=== PATIENT | male | born 2005 | race Caucasian/White ===

== ENCOUNTER 2023-12-01 13:59 | Emergency (ER) | payer OTHER, SELFPAY ==
[2023-12-01 14:07] VITALS: BP 142/65; PULSE 63; RESP 16; TEMP 36.8; O2SAT 98
--- NOTE | 2023-12-01 14:32 | ED.GENADULT ---
HPI - General Adult General Chief complaint: Wound/Laceration Stated complaint: left foot laceration Time Seen by Provider: 12/01/23 14:24 History of Present Illness HPI narrative: 18-year-old male present to the emergency department for evaluation for left-sided foot wound. Patient stepped on a staple at home. Patient states it was a carpet stable and did not stay in his foot. Patient states he was concerned about possibly of underlying infection so he presented to the emergency department. Patient states he also does need a work note for today. Patient reports that his tetanus is up-to-date. Related Data Allergies Allergy/AdvReac Type Severity Reaction Status Date / Time No Known Allergies Allergy Verified 12/01/23 14:09 Review of Systems Review of Systems: All systems reviewed & are unremarkable except as noted in HPI and below Exam Narrative: APPEARANCE: Well appearing, no pain, no distress, well-nourished. HEAD: normocephalic, atraumatic. EYES: PERRLA/EOMI, conjunctivae clear. NOSE: Normal no drainage EARS:TMS clear with good light reflex. THROAT: Pharynx clear, no exudate. NECK: Supple. No adenopathy, no masses. RESPIRATORY: Airway patent, respirations nonlabored. Clear to auscultation bilaterally, no rales, rhonchi, wheezing. CARDIOVASCULAR: Regular rate and rhythm without murmurs rubs or gallops. ABDOMINAL: Soft, nontender, nondistended, normal bowel sounds MUSCULOSKELETAL: Moves all extremities. Strength/ROM intact, No edema, No calf tenderness. NEURO: Alert. Cranial nerves II through XII intact. Good gait. Good coordination SKIN: No puncture wound noted on the dorsum of the left foot. No significant erythema. Course Course Emergency Course: Patient was started on antibiotics for reported puncture wound. Patient's tetanus was reported to be up-to-date Vital Signs Vital signs: Vital Signs Temperature 98.2 F 12/01/23 14:07 Pulse Rate 63 12/01/23 14:07 Respiratory Rate 16 12/01/23 14:07 Blood Pressure 142/65 H 12/01/23 14:07 Pulse Oximetry 98 12/01/23 14:07 Oxygen Delivery Room Air 12/01/23 14:07 Temperature 98.2 F 12/01/23 14:07 Pulse Rate 63 12/01/23 14:07 Respiratory Rate 16 12/01/23 14:07 Blood Pressure 142/65 H 12/01/23 14:07 Pulse Oximetry 98 12/01/23 14:07 Oxygen Delivery Room Air 12/01/23 14:07 Medical Decision Making MDM Narrative Medical decision making narrative: 18-year-old male presenting to the ED for evaluation for a puncture wound to the bottom of his left foot. Patient has had no significant injury requiring repair. Patient was started on antibiotics. Patient's tetanus was up-to-date. Patient was encouraged close follow-up with primary care physician. Vital Signs Vital Signs: Vital Signs Temperature 98.2 F 12/01/23 14:07 Pulse Rate 63 12/01/23 14:07 Respiratory Rate 16 12/01/23 14:07 Blood Pressure 142/65 H 12/01/23 14:07 Pulse Oximetry 98 12/01/23 14:07 Oxygen Delivery Room Air 12/01/23 14:07 Temperature 98.2 F 12/01/23 14:07 Pulse Rate 63 12/01/23 14:07 Respiratory Rate 16 12/01/23 14:07 Blood Pressure 142/65 H 12/01/23 14:07 Pulse Oximetry 98 12/01/23 14:07 Oxygen Delivery Room Air 12/01/23 14:07 Discharge Plan Discharge Clinical Impression: Puncture wound Patient Disposition: Home, Self-Care Condition: Stable Instructions: Antibiotic Form, Puncture Wound (ED) Additional Instructions: Antibiotic as directed until completed. Have close follow-up with your primary care physician. Prescriptions: New cephalexin 500 mg capsule 500 mg PO Q12H 7 Days Qty: 14 0RF Follow-up/Referrals: PHYSICIAN,AIR TECHNICIAN [Non-Staff] - Stand Alone Forms: Work/School Release IP
== END 2023-12-01 14:54 | disposition home or self-care (01) ==
LOC: ANHED 14:42
PROVIDERS: Emergency Provider Emergency Medicine
DX: S91.332A Puncture wound without foreign body, left foot, initial encounter (principal); W26.8XXA Contact with other sharp object(s), not elsewhere classified, initial encounter
CPT/HCPCS: 99283

== ENCOUNTER 2024-09-02 18:27 | Emergency (ER) | payer OTHER, SELFPAY ==
--- OUTSIDE RECORDS SUMMARY | 2024-09-02 18:39 | XMS_ITS | Clinical Summary ---
Author Organization [facility] [place] [address] [facility] lto Address [address] [place] [address] Care Team Providers Care Library Circulation Clerk Name Role Phone Griffin Colorado MD Primary Care Provider [phone] Allergies No known active allergies Medications albuterol HFA (PROVENTIL HFA,VENTOLIN HFA,PROAIR HFA) 90 mcg/actuation inhaler Inhale 2 puffs every 6 (six) hours as needed for wheezing 1 each 4 04/21/19 25 026 Active ondansetron ODT (ZOFRAN-ODT) 4 mg disintegrating tablet Take 1 tablet (4 mg total) by mouth every 8 (eight) hours as needed for nausea or vomiting 20 tablet 06/16/19 25 Active Additional Information Patient not taking.Reported on 08/30/2024 methylPREDNISolone (MEDROL DOSEPACK) 4 mg Dosepack Take as directed on package 1 packet 08/31/19 25 025 Active Active Problems Problem Noted Date Diagnosed Date Acute right eye pain 05/25/2024 Right corneal abrasion 05/25/2024 Assessment & Plan (05/25/2024 1:22 PM CANVASSING MANAGER): Erythromycin ointment given. Discussed red flags and when to go to ER. Will continue to monitor. 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 Encounter for medical examination to establish c are 04/21/2024 Assessment & Plan (04/21/2024 9:09 AM CANVASSING MANAGER): Focus of exam is to establish care. Reivewed past medical history. Congratulate on cigarette cessation. Remains active. Reivewed usn/skin cancer screening. Montior for change in stools / abdominal pain with family hx of UC. BMI 34.0-34.9,adult 04/21/2024 Assessment & Plan (04/21/2024 9:09 AM CANVASSING MANAGER): Healthy food chcoies and encourage 150min/week aerobic exercise. Class 1 obesity due to exces s calories without serious comorbidity with body mass index (BMI) of 34.0 to 34.9 in adult 04/21/2024 Assessment & Plan (05/25/2024 1:21 PM CANVASSING MANAGER): Encouraged heart healthy diet and lifestyle. Advised 150 min/week of aerobic exercise. Hay fever 07/07/2011 Encounters Date Type Department Care Team Description 08/30/2024 4:53 PM CDT - 08/30/2024 6:45 PM CDT Emergency [facility] Emergency Department [address] [place] [address] Acute cough (Primary Dx); Viral illness Discharge Disposition: Discharge to home or self care 08/30/2024 3:30 PM CDT Office Visit [facility] [place] [address] [place] [address] Ashley Little NP Dizziness (Primary Dx) 06/15/2024 3:00 PM CDT Office Visit [facility] Medical [facility] [place] [address] [place] [phone] Palmira Feliz NP Sore throat (Primary Dx); Upper respiratory tract infection, unspecified type; Nausea and vomiting, unspecified vomiting type; Diarrhea, unspecified type from Last 3 Months Immunizations Immunization Administration Dates Next Due DTaP / Hep B / IPV 05/06/2004,03/04/2004, 004 DTaP / IPV 11/08/2008 DTaP, Unspecified 01/26/2005 HPV, Quadrivalent 08/26/2017,03/03/2016 Hep A, Unspecified 11/02/2006,2005 Hep B, Unspecified 2003 HiB 01/26/2005,05/06/2004,03/04/2004 ,01/03/2004 Influenza LAIV (Nasal) 01/26/2012 Influenza, Unspecified 01/09/2021 MMR 11/08/2008,04/20/2005 Meningococcal B, OMV (Bexsero) 01/09/2021 Meningococcal MCV4P (Menactra) 01/09/2021,2014 Pneumococcal Conjugate 7-Valent 03/04/2004,01/02 Pneumococcal, Unspecified 2004,05/06/2004 Tdap 07/16/2022,09/03/2014 Varicella 11/08/2008,2004 Medical History Medical History Date Comments Personal history of other di seases of the digestive system History of esophageal reflux - (Added by TW Conv) Personal history of other di seases of the respiratory system Personal history of asthma - (Added by TW Conv) Family History Medical History Relation Name Comments Ulcerative colitis Father Ulcerativ e Colitis - (Added by TW Conv) Asthma Mother Asthma - (Added by TW Conv) Relation Name Status Comments Father Mother Social History Tobacco Use Types Packs/Day Years Used Date Smoking Tobacco: Former Cigarettes Vaping Smokeless Tobacco: Former Tobacco Cessation:Counseling Given: Not Answered PHQ-2 Answer Date Recorded PHQ-2 Total Score (If total score is 3 or more points, staff should administer the PHQ-9) 0 05/25/2024 Personal Safety Answer Date Recorded Have you ever been in or are you currently in a harmful physical or emotional relationship or is someone making you feel afraid or unsafe? Denies 08/30/2024 Sex and Gender Information Value Date Recorded Sex Assigned at Not on file Legal Sex Male 11:29 PM CANVASSING MANAGER Gender Identity Not on file Sexual Orientation Not on file Obstetrics History Last Filed Vital Signs Vital Sign Reading Time Taken Comments Blood Pressure 119/57 08/30/2024 4:51 PM CDT Pulse 95 08/30/2024 4:51 PM CDT Temperature 37.2 C (99 F) 08/30/2024 6:16 PM CDT Respiratory Rate 16 08/30/2024 4:51 PM CDT Oxygen Saturation 98% 08/30/2024 4:51 PM CDT Inhaled Oxygen Concentration - - Weight 102.5 kg (226 lb) 08/30/2024 4:51 PM CDT Height 177.8 cm (5' 10) 08/30/2024 4:51 PM CDT Body Mass Index 32.43 08/30/2024 4:51 PM CDT Plan of Treatment Health Maintenance Due Date Last Done Comments Hepatitis C Screening 2003 Meningococcal B Vaccine (2 o f 2 - Bexsero SCDM 2-dose series) 07/10/2021 01/09/2021 Regular Well Visit/Exam 18-64 11/02/2021 Covid-19 Vaccine (3 - 2023-2 5 season) 2023 10/24/2020, 09/28/2020 Influenza Vaccine (Season Ended) 2024 01/10/20 21, 01/26/2012 Depression Screening 05/25/2025 05/25/2024, 04/21/19 25 DTaP/Tdap/Td Vaccine (8 - Td or Tdap) 07/16/2032 07/16/2022, 09/03/2014, 11/08/2008, Additional history exists Hepatitis B Screening Completed 05/06/2004 , 03/04/2004, 01/03/2004, Additional history exists Pneumococcal vaccine <65 Completed 005, 05/06/2004, 03/04/2004, Additional history exists Varicella Vaccines Completed 11/08/2008, 2004 HPV Vaccines Completed 08/26/2017, 03/03/2016 Meningococcal Vaccine Completed 01/09/2021, 015 Procedures Procedure Name Priority Date/Time Associated Diagnosis Comments XR CHEST 1 VIEW ED 08/30/2024 5:29 PM CDT EGFR STAT 08/30/2024 5:12 PM CDT DIFFERENTIAL AUTO STAT 08/30/2024 5:1 2 PM CDT MAGNESIUM Routine 08/30/2024 5:12 PM CDT COMPREHENSIVE METABOLIC PANEL STAT 08/30/2024 5:12 PM CDT CBC WITH AUTO DIFFERENTIAL STAT 08/30/2024 5:12 PM CDT POCT RAPID STREP Routine 08/30/2024 3:42 PM CDT Dizziness COVID-19 POC Routine 08/30/2024 3:42 PM CDT Dizziness POCT RAPID STREP Routine 06/15/2024 3:22 PM CDT Sore throat POC INFLUENZA A/B, COVID-19 ANTIGEN Routine 06/15/2024 3:22 PM CDT Sore throat from Last 3 Months Results * XR Chest 1 Vw Portable (08/30/2024 5:29 PM CDT) Anatomical Region Laterality Modality Body, Chest N/A Computed Radiogr aphy 08/30/2024 6:16 PM CDT Narrative 08/30/2024 6:16 PM CDT EXAM DESCRIPTION: XR CHEST 1 VIEW REASON FOR STUDY: cough Pt to ED for c/o SOB, headache, cough, fatigue, body aches and feeling over heated even though he doesn't have a fever x 1 week. Pt reports he works outside. Pt went to prior to arrival where he had a negative Covid/Flu/Strep per pt. Pt reports hx of Asthma. TECHNIQUE: Single radiographic view(s) of the chest. COMPARISON: None FINDINGS: LUNGS: No focal opacity, pleural effusion, or pneumothorax. HEART/MEDIASTINUM: Cardiac silhouette normal in size. Mediastinal and hilar contours appear normal. LINES/TUBES: None. BONES: No acute osseous abnormality. IMPRESSION: No acute cardiopulmonary abnormality. THIS IS AN ELECTRONICALLY VERIFIED FINAL REPORT 08/30/2024 6:16 PM - Electronically signed by Anant Erwin M.D. KH: GUS Report ID: [id number] Reading Location: [id number] Procedure Note Anant Erwin MD - 08/30/2024 EXAM DESCRIPTION: XR CHEST 1 VIEW REASON FOR STUDY: cough Pt to ED for c/o SOB, headache, cough, fatigue, body aches and feelingover heated even though he doesn't have a fever x 1 week. Pt reports he works outside. Pt went to prior to arrival where he had a negative Covid/Flu/Strep per pt. Pt reports hx of Asthma. TECHNIQUE: Single radiographic view(s) of the chest. COMPARISON: None FINDINGS: LUNGS: No focal opacity, pleural effusion, or pneumothorax. HEART/MEDIASTINUM: Cardiac silhouette normal in size. Mediastinal andhilar contours appear normal. LINES/TUBES: None. BONES: No acute osseous abnormality. IMPRESSION: No acute cardiopulmonary abnormality. THIS IS AN ELECTRONICALLY VERIFIED FINAL REPORT 08/30/2024 6:16 PM - Electronically signed by Anant Erwin M.D. KH: GUS Report ID: [id number] Reading Location: [id number] Maggy NEELY IM XR PROCEDURES Final Result * eGFR (08/30/2024 5:12 PM CDT) eGFR >90 >=60 mL/min/1. 73 m2 Comment: Interpretive Data Reference Interval Normal >/= 90 mL/min/1.73m2 Mildly decreased* 60 - 89 mL/min/1.73m2 Mildly to moderately decreased 45 - 59 mL/min/1.73m2 Moderately to severely decreased 30 - 44 mL/min/1.73m2 Severely decreased 15 - 29 mL/min/1.73m2 Kidney Failure < 15 mL/min/1.73m2 *Relative to young adult level Estimated glomerular filtration rate is determined by the 2020 CKD-EPI equation recommended by the National Kidney Foundation (A Unifying Approach to GFR Estimation: Recommendations of the NKF-ASK Task Force on Reassessing the Inclusion of Race in Diagnosing Kidney Disease, JASN 2020). The CKD-EPI equation should not be used for patients with unstable renal function and has not been validated in children and those over 70. Current interpretive data was last reviewed 2021. Blood 08/30/2024 5:12 PM CDT 08/30/2024 5:14 PM CDT us Maggy NEELY LAB BLOOD ORDERABLES Final Resu lt [facility] ([place]) 1 [facility] Department [place] [address] * Differential, auto (08/30/2024 5:12 PM CDT) Neutrophil abs 1.76 1.50 - 6.50 K/cumm Imm gran abs 0.01 0.00 - 0.10 K/cumm [facility] ([place]) Lymphocyte abs 2.39 0.80 - 3.30 K/cumm [facility] ([place]) Monocyte abs 0.39 0.20 - 0.80 K/cumm [facility] ([place]) Eosinophil abs 0.01 0.00 - 0.50 K/cumm [facility] ([place]) Basophil abs 0.06 0.00 - 0.10 K/cumm [facility] ([place]) Neutrophil pct 38.2 % [facility] ([place]) Comment: Interpretive Data Percent cell count reference ranges are not reported, since discordance with absolute values may lead to misinterpretation of CBC data. Current Interpretive Data was last revised on 2017. Imm gran pct 0.2 % [facility] ([place]) Comment: Interpretive Data Percent cell count reference ranges are not reported, since discordance with absolute values may lead to misinterpretation of CBC data. Current Interpretive Data was last revised on 2017. Lymphocyte pct 51.7 % [facility] ([place]) Comment: Interpretive Data Percent cell count reference ranges are not reported, since discordance with absolute values may lead to misinterpretation of CBC data. Current Interpretive Data was last revised on 2017. Monocyte pct 8.4 % [facility] ([place]) Comment: Interpretive Data Percent cell count reference ranges are not reported, since discordance with absolute values may lead to misinterpretation of CBC data. Current Interpretive Data was last revised on 2017. Eosinophil pct 0.2 % [facility] ([place]) Comment: Interpretive Data Percent cell count reference ranges are not reported, since discordance with absolute values may lead to misinterpretation of CBC data. Current Interpretive Data was last revised on 2017. Basophil pct 1.3 % [facility] ([place]) Comment: Interpretive Data Percent cell count reference ranges are not reported, since discordance with absolute values may lead to misinterpretation of CBC data. Current Interpretive Data was last revised on 2017. Blood 08/30/2024 5:12 PM CDT 08/30/2024 5:14 PM CDT us Maggy NEELY LAB BLOOD ORDERABLES Final Resu lt [facility] ([place]) 1 [facility] Department [place] [address] * (ABNORMAL) CBC with auto differential (08/30/2024 5:12 PM CDT) WBC 4.62 3.80 - 9.90 K/cumm Hgb 13.6 13.0 - 17.5 g/dL [facility] ([place]) Hct 39.3 38.9 - 50.3 % [facility] ([place]) Plt 123(L) 150 - 400 K/cumm [facility] ([place]) MPV 10.3 9.1 - 12.3 fL [facility] ([place]) RBC 4.67 4.30 - 5.80 M/cumm [facility] ([place]) MCV 84.2 81.3 - 96.4 fL [facility] ([place]) MCH 29.1 27.1 - 33.3 pg [facility] ([place]) MCHC 34.6 32.3 - 35.7 g/dL [facility] ([place]) RDW CV 13.0 11.1 - 14.9 % [facility] ([place]) RDW SD 40.2 35.7 - 48.1 fL [facility] ([place]) NRBC abs 0.00 0.00 - 0.01 K/cumm [facility] ([place]) Morphologic Screen Results confirmed by manual morphology review. [facility] ([place]) Blood 08/30/2024 5:12 PM CDT 08/30/2024 5:14 PM CDT Maggy Melvin MS LAB BLOOD ORDERABLES Final Resu lt [facility] ([place]) 1 [facility] [place] [address] * Magnesium (08/30/2024 5:12 PM CDT) Pathologist [facility] Magnesium 1.7 1.4 - 2.5 mg/dL Blood 08/30/2024 5:12 PM CDT 08/30/2024 5:14 PM CDT Maggy Charles PA LAB BLOOD ORDERABLES Final Resu lt Performing Organization Address City/[facility] Co de Phone Number [facility] ([place]) [address] [facility] [place] [address] * (ABNORMAL) Comprehensive metabolic panel (08/30/2024 5:12 PM CDT) Sodium 136 135 - 145 mmol/L Potassium, pl 4.1 3.3 - 4.9 mmol/L [facility] ([place]) Chloride 100 97 - 110 mmol/L [facility] ([place]) CO2 23 22 - 32 mmol/L [facility] ([place]) Anion gap 13 2 - 15 mmol/L [facility] ([place]) BUN 16 6 - 25 mg/dL [facility] ([place]) Creatinine 0.87 0.80 - 1.30 mg/dL [facility] Glucose 98 70 - 199 mg/dL [facility] ([place]) Comment: Interpretive Data Fasting glucose >/= 126 mg/dl is diagnostic for diabetes. Fasting is defined as no caloric intake for at least 8 hours. Fasting glucose between 100 mg/dl to 125 mg/dl is diagnostic of prediabetes. In a patient with classic symptoms of hyperglycemia or hyperglycemic crisis, a random glucose >/= 200 mg/dl is diagnostic for diabetes. In the absence of unequivocal hyperglycemia, results should be confirmed by repeat testing. The classification and Diagnosis of Diabetes Diabetes Care 2021; 46: S19-S40. Current interpretive data was last revised 2022. Calcium 8.5 8.5 - 10.3 mg/dL [facility] ([place]) Bilirubin, total 0.7 0.1 - 1.2 mg/dL [facility] ([place]) Protein, pl 6.4(L) 6.5 - 8.5 g/dL [facility] ([place]) Albumin 3.9 3.5 - 5.0 g/dL [facility] ([place]) Alk phos 85 40 - 130 Units/L [facility] ([place]) ALT 40 7 - 55 Units/L [facility] ([place]) AST 37 10 - 50 Units/L [facility] ([place]) Comment: Hemolysis present. Results may be affected. Slightly Hemolyzed Specimen Blood 08/30/2024 5:12 PM CDT 08/30/2024 5:14 PM CDT us Maggy NEELY LAB BLOOD ORDERABLES Final Resu lt [facility] ([place]) 1 [facility] Department [place] [address] * COVID-19 POC (08/30/2024 3:42 PM CDT) COVID-19 Ag POC (BD Veritor) Presumptive Negative Presumptive Negative, Invalid [facility] Nasal 08/30/2024 3:42 PM CDT us Ashley Little NP POINT OF CARE TEST ORDERABLES Final Result [facility] [address] [place] [address], [facility] * POCT rapid strep A (08/30/2024 3:42 PM CDT) Rapid Strep A, POC Negative Negative Swab 08/30/2024 3:42 PM CDT Ashley Little OUTREACH ASSOCIATE POINT OF CARE TEST ORDERABLES Final Result * POC Influenza A/B, COVID-19 antigen (06/15/2024 3:22 PM CDT) Influenza A Ag, POC Negative Negative [facility] Influenza B Ag, POC Negative Negative [facility] COVID-19 Ag POC Presumptive Negative Presumptive Negative, Invalid [facility] Nasal 06/15/2024 3:22 PM CDT Palmira Feliz OUTREACH ASSOCIATE POINT OF CARE TEST ORDERAB LES Final Result [facility] [address] [place] [address] * POCT rapid strep A (06/15/2024 3:22 PM CDT) Pathologist [facility] Rapid Strep A, POC Negative Negative Swab 06/15/2024 3:22 PM CDT Palmira Feliz OUTREACH ASSOCIATE POINT OF CARE TEST ORDERAB LES Final Result from Last 3 Months Insurance [facility] CHOICE PLUS [place] [id number] Care Teams Library Circulation Clerk Relationship Specialty Start Date End Date Griffin Colordao MD [address] [place] [address] PCP - General Family Medicine 04/21/24
--- OUTSIDE RECORDS SUMMARY | 2024-09-02 18:39 | XMS_ITS | Referral Summary ---
Author Organization [address] lt Address [address] [place] [address] [place] [address] Care Team Providers Care Casing Man Name Role Phone Griffin Colorado MD Primary Care Provider [phone] Encounters Date Type Department Care Team Description 08/30/2024 4:53 PM CDT - 08/30/2024 6:45 PM CDT Emergency [facility] Emergency Department [address] [place] [address] Acute cough (Primary Dx); Viral illness Discharge Disposition: Discharge to home or self care 08/30/2024 3:30 PM CDT Office Visit [facility] Care at [address] [place] [address] Ashley Little NP Dizziness (Primary Dx) 06/15/2024 3:00 PM CDT Office Visit [facility] Care at [address] [place] [address] Palmira Feliz NP Sore throat (Primary Dx); Upper respiratory tract infection, unspecified type; Nausea and vomiting, unspecified vomiting type; Diarrhea, unspecified type from Last 3 Months Allergies No known active allergies Medications albuterol HFA (PROVENTIL HFA,VENTOLIN HFA,PROAIR HFA) 90 mcg/actuation inhaler Inhale 2 puffs every 6 (six) hours as needed for wheezing 1 each 4 01/24/20 25 026 Active ondansetron ODT (ZOFRAN-ODT) 4 [...] 05/25/2024 Assessment & Plan (05/25/2024 1:22 PM SENIOR FIELD ENGINEER): Erythromycin ointment given. Discussed red flags and when to go to ER. Will continue to monitor. 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 Encounter for medical examination to establish c are 04/21/2024 Assessment & Plan (04/21/2024 9:09 AM SENIOR FIELD ENGINEER): Focus of exam is to establish care. Reivewed past medical history. Congratulate on cigarette cessation. Remains active. Reivewed usn/skin cancer screening. Montior for change in stools / abdominal pain with family hx of UC. BMI 34.0-34.9,adult 04/21/2024 Assessment & Plan (04/21/2024 9:09 AM SENIOR FIELD ENGINEER): Healthy food chcoies and encourage 150min/week aerobic exercise. Class 1 obesity due to exces s calories without serious comorbidity with body mass index (BMI) of 34.0 to 34.9 in adult 04/21/2024 Assessment & Plan (05/25/2024 1:21 PM SENIOR FIELD ENGINEER): Encouraged heart healthy diet and lifestyle. Advised 150 min/week of aerobic exercise. Hay fever 07/07/2011 Immunizations Immunization Administration Dates Next Due DTaP [...] Pneumococcal, Unspecified 2004,05/06/2004 Tdap 07/16/2022,09/03/2014 Varicella 11/08/2008,2004 Social History Tobacco Use Types Packs/Day Years [...] on file Legal Sex Male 11:29 PM SENIOR FIELD ENGINEER Gender Identity Not on file Sexual Orientation Not on file Last Filed Vital Signs Vital Sign Reading [...] 08/30/2024 4:51 PM CDT Plan of Treatment Not on file Procedures Procedure Name Priority Date/Time Associated Diagnosis [...] 6:16 PM - Electronically signed by Anant Ewrin M.D. KH: GUS Report ID: [id number] Reading Location: [id number] Procedure Note Anant Erwin MD - 08/30/2024 [...] Anant Erwin M.D. KH: GUS Report ID: [id number] Reading Location: [id number] Maggy [facility] [place]ED[place] Final Result * eGFR (08/30/2024 [...] BLOOD ORDERABLES Final Resu lt [facility] ([place]) 1 [facility] Department [place] [address] * Differential, auto (08/30/2024 5:12 PM CDT) [...] revised on 2017. Basophil pct 1.3 % [facility] ([place]) Comment: Interpretive Data Percent cell count reference ranges are not reported, since discordance with absolute values may lead to misinterpretation of CBC data. Current Interpretive Data was last revised on 2017. Blood 08/30/2024 5:12 PM CDT 08/30/2024 5:14 PM CDT us Maggy NEELY LAB BLOOD ORDERABLES Final Resu lt [facility] ([place]) 1 [facility] Department [place] [address] * (ABNORMAL) CBC with auto differential (08/30/2024 5:12 PM CDT) WBC 4.62 3.80 - 9.90 K/cumm Hgb 13.6 13.0 - 17.5 g/dL [facility] ([place]) Hct 39.3 38.9 - 50.3 % [facility] ([place]) Plt 123(L) 150 - 400 K/cumm [facility] ([place]) MPV 10.3 9.1 - 12.3 fL [facility] ([place]) RBC 4.67 4.30 - 5.80 M/cumm [facility] ([place]) MCV 84.2 81.3 - 96.4 fL [facility] ([place]) MCH 29.1 27.1 - 33.3 pg [facility] ([place]) MCHC 34.6 32.3 - 35.7 g/dL [facility] ([place]) RDW CV 13.0 11.1 - 14.9 % [facility] ([place]) RDW SD 40.2 35.7 - 48.1 fL [facility] ([place]) NRBC abs 0.00 0.00 - 0.01 K/cumm [facility] ([place]) Morphologic Screen Results confirmed by manual morphology review. [facility] ([place]) Blood 08/30/2024 5:12 PM CDT 08/30/2024 5:14 PM CDT Maggy [facility]ELY LAB BLOOD ORDERABLES Final Resu lt Performing Organization Address City/[facility]/ZIP Co de Phone Number [facility] ([place]) 1 [facility] [place] [address] * Magnesium (08/30/2024 5:12 PM CDT) [facility] Magnesium 1.7 1.4 - 2.5 mg/dL Blood 08/30/2024 5:12 PM CDT 08/30/2024 5:14 PM CDT Maggy [facility] LAB BLOOD ORDERABLES Final Resu lt [facility] ([place]) 1 [facility] [place] [address] * (ABNORMAL) Comprehensive metabolic panel (08/30/2024 5:12 PM CDT) Sodium 136 135 - 145 mmol/L Potassium, pl 4.1 3.3 - 4.9 mmol/L [facility] ([place]) Chloride 100 97 - 110 mmol/L [facility] ([place]) CO2 23 22 - 32 mmol/L [facility] ([place]) Anion gap 13 2 - 15 mmol/L [facility] ([place]) BUN 16 6 - 25 mg/dL [facility] ([place]) Creatinine 0.87 0.80 - 1.30 mg/dL [facility] ([place]) Glucose 98 70 - 199 mg/dL [facility] ([place]) Comment: Interpretive Data Fasting glucose [...] 2022. Calcium 8.5 8.5 - 10.3 mg/dL [facility] ([place]) Bilirubin, total 0.7 0.1 - 1.2 mg/dL [facility] ([place]) Protein, pl 6.4(L) 6.5 - [...] Final Resu lt [facility] ([place]) 1 [facility] Department [place] [address] * COVID-19 POC (08/30/2024 3:42 PM CDT) COVID-19 Ag POC ( Veritor) Presumptive Negative Presumptive Negative, Invalid [facility] Nasal 08/30/2024 3:42 PM CDT Ashley Little REPORT CHECKER POINT OF CARE TEST ORDERABLES Final Result Performing Organization Address [facility]/ZIP Co de Phone Number [facility] [address] [place] [address], [place] * POCT rapid strep A (08/30/2024 3:42 PM CDT) Rapid Strep A, POC Negative Negative Swab 08/30/2024 3:42 PM CDT Ashley Little REPORT CHECKER POINT OF CARE TEST ORDERABLES Final Result * POC Influenza A/B, COVID-19 antigen (06/15/2024 3:22 PM CDT) Influenza A Ag, POC Negative Negative [facility] Influenza B Ag, POC Negative Negative [facility] COVID-19 Ag POC Presumptive Negative Presumptive Negative, Invalid [facility] Nasal 06/15/2024 3:22 PM CDT Palmira Feliz REPORT CHECKER POINT OF CARE TEST ORDERAB LES Final Result Performing Organization Address City/[facility]/ZIP Co de Phone Number [facility] [address] [place] [address] * POCT rapid strep A (06/15/2024 3:22 PM CDT) Rapid Strep A, POC Negative Negative Swab 06/15/2024 3:22 PM CDT Palmira Feliz REPORT CHECKER POINT OF CARE TEST ORDERAB LES Final Result from Last 3 Months Insurance [facility] CHOICE PLUS Care Teams Casing Man Relationship Specialty Start Date End Date Griffin Colorado MD [address] [place] [address] PCP - General Family Medicine 04/21/24
--- OUTSIDE RECORDS SUMMARY | 2024-09-02 18:39 | XMS_ITS | Clinical Summary ---
Author Organization [facility] Address [address] [place] [address] Phone Care Team Providers Care Storage Garage Attendant Name Role Phone Provider, None Primary Care Provider Unavailabl e Allergies Active Allergy Reactions Criticality Noted Date Comments Cat Dander Other (see Comments) 01/03/2024 Medications ibuprofen (MOTRIN) 800 MG Tablet Take 1 Tablet by mouth every 8 hours. 30 Tablet 3 Active Additional Information Patient not taking.Reported on 01/03/2024 silver sulfADIAZINE (SILVADENE) 1 % Cream Apply 2 times daily. Application Site: L hand 50 g 3 Active Additional Information Patient not taking.Reported on 01/03/2024 methylPREDNISolo ne (MEDROL DOSPACK) 4 MG Tablet Therapy Pack See product package insert for dosing schedule 21 Tablet 3 Active Additional Information Patient not taking.Reported on 01/03/2024 cyclobenzaprine (FLEXERIL) 10 MG Tablet Take 1 Tablet by mouth 3 times daily as needed for Muscle spasms. 30 Tablet 3 Active Additional Information Patient not taking.Reported on 01/03/2024 naproxen (NAPROSYN) 500 MG Tablet Take 1 Tablet by mouth 2 times daily as needed for Mild or more severe pain. 20 Tablet 4 Active Additional Information Patient not taking.Reported on 01/03/2024 albuterol (ProAir HFA) 108 (90 Base) MCG/ACT Aerosol SolutionIndicati ons:Productive cough,SOB (shortness of breath) take 2 Puffs by inhalation every 4 hours as needed for Wheezing or Cough. 8 g Active Active Problems No known active problems Immunizations Immunization Administration Dates Next Due TDAP Vaccine 07/16/2022 Social History Tobacco Use Types Packs/Day Years Used Date Smoking Tobacco: Never Smokeless Tobacco: Never Tobacco Cessation:Counseling Given: Not Answered Alcohol Use Standard Drinks/Week Comments Not Currently 0 (1 standard drink = 0.6 oz pur e alcohol) Sexually Active Control Partners Comments Not Currently Sex and Gender Information Value Date Recorded Sex Assigned at Not on file Legal Sex Male 9:29 PM CDT Gender Identity Not on file Sexual Orientation Not on file Last Filed Vital Signs Vital Sign Reading Time Taken Comments Blood Pressure 134/74 01/03/2024 1:07 PM CDT Pulse 63 01/03/2024 1:07 PM CDT Temperature 36.8 C (98.2 F) 01/03/2024 1:07 PM CDT Respiratory Rate 18 01/03/2024 1:07 PM CDT Oxygen Saturation 96% 01/03/2024 1:07 PM CDT Inhaled Oxygen Concentration - - Weight 98 kg (216 lb) 04/20/2023 9:28 PM SUPERVISOR LAUNDRY Height 177.8 cm (5' 10) 04/20/2023 9:28 PM SUPERVISOR LAUNDRY Body Mass Index 30.99 04/20/2023 9:28 PM SUPERVISOR LAUNDRY Plan of Treatment Health Maintenance Due Date Last Done Comments Hepatitis C Virus (HCV) Screening 2003 Meningococcal B Immunization (2 of 2 - Bexsero SCDM 2-dose series) 07/10/2021 01/09/2021 Influenza Immunization (#1) 2023 01/09/2021, 1 SARS-COV-2 Immunization ( season) 2023 10/24/2020, 09/28/2020 Td Immunization Every 10 Years (Adults With 1 Tdap) 07/16/2032 07/16/2022, 09/03/2014 Respiratory Syncytial Virus (RSV) Immunization (Adult) (1 - 1-dose 75+ series) 11/02/2078 Hepatitis B Immunization Completed 005, 03/04/2004, 01/03/2004, Additional history exists Pneumococcal Immunization Combined Aged Out 2004, 05/06/2004, 05/06/2004, Additional history exists No longer eligible based on patient's age to complete this topic Hepatitis A Immunization Discontinued 11/02/2006, 10/2005 Measles Mumps Rubella (MMR) Immunization Discontinued 11/08/2008, 04/20/2005 Polio (IPV) Immunization Discontinued 009, 05/06/2004, 03/04/2004, Additional history exists Varicella Immunization Discontinued 11/08/2008, 2004 Human Papillomavirus (HPV) Immunization Completed 08/26/2017, 03/03/2016 Meningococcal Immunization (ACWY) Completed 01/09/2021, 01/01/2015 DTaP/Tdap/Td Immunization Discontinued 2022, 09/03/2014, 11/08/2008, Additional history exists Rotavirus Immunization Aged Out No lo nger eligible based on patient's age to complete this topic Insurance [facility] Care Teams Storage Garage Attendant Relationship Specialty Start Date End Date Provider, None [place] PCP - General 01/03/24
[2024-09-02 18:42] VITALS: BP 121/66; PULSE 85; RESP 16; TEMP 37.1; O2SAT 99
[2024-09-02 19:01] LABS: EDSTREPNEGPOS1 Negative (Negative)
--- NOTE | 2024-09-02 19:05 | ED.GENADULT ---
HPI - General Adult General Chief complaint: Upper Respiratory Infection Stated complaint: Sore Throat Source: patient Mode of arrival: ambulatory Limitations: no limitations History of Present Illness HPI narrative: Patient presents for evaluation sick symptoms for last week. Symptoms hot flashes, sore, headache, sinus congestion/drainage, occasional cough and SOB. He went to urgent care 4 days ago and had negative COVID test. He was sent to the emergency department. He had a chest x-ray which was negative. He was given prescription for Medrol Dosepak, which he has been taking as directed. He states his symptoms are not improving. No nausea, vomiting or diarrhea. He is not taking any medications to assist with the symptoms. He does not smoke. Related Data Allergies Allergy/AdvReac Type Severity Reaction Status Date / Time No Known Allergies Allergy Verified 09/02/24 18:53 Review of Systems Review of Systems: CONSTITUTIONAL: Reports hot flashes Denies fever, chills, or sweats. EYES: Denies visual changes, redness, or discharge. ENT: Reports sore throat, sinus congestion and nasal drainage CARDIOVASCULAR: Denies chest pain, palpitations, or edema. RESPIRATORY: Reports cough. Denies dyspnea. GASTROINTESTINAL: Denies abdominal pain, nausea, vomiting, or diarrhea. GENITOURINARY: Denies dysuria or hematuria. SKIN: Denies rash or itching. MUSCULOSKELETAL: Denies back pain, joint pain, or myalgia. NEUROLOGIC: Reports headache. Denies numbness, dizziness, or weakness. PSYCHIATRIC: Denies anxiety or depression. PMFSH Past Medical History Medical History Asthma Surgical History Surgical History History of tonsillectomy Family History Family History Mother Family history non-contributory Social History Social History Smoking status: Former smoker Alcohol intake: current Alcohol use details: rare Gender identity (if verbalized by the patient): Male Spiritual care concerns: No Exam Narrative: GENERAL: Well-appearing, well-nourished, and in no acute distress. HEAD: Normocephalic, atraumatic. EYES: PERRLA and EOMI. ENT: Nares clear, no rhinorrhea or epistaxis. Mucous membranes moist. There is posterior pharyngeal erythema. Oropharynx without tonsillar hypertrophy exudate or other lesions. Bilateral TMs pearly zuniga nonbulging NECK: Supple. No adenopathy or masses. No carotid bruits or JVD CHEST: Clear to auscultation. No respiratory distress. No wheezes rales or rhonchi HEART: Regular rate and rhythm. No murmur heard. Normal peripheral pulses. ABDOMEN: Soft, nontender, nondistended, normal active bowel sounds. EXTREMITIES: Normal range of motion. No edema. SKIN: Warm, dry, no rash. NEURO: No focal deficits. Alert and oriented x3. PSYCH: Normal mood and affect. Course Course Emergency Course: This is a 18 year old male who presented for evaluation sick symptoms. Rapid strep negative. Will send throat culture. Through shared decision making opted to proceed with abx therapy. Will dc with augmentin. Follow up with primary provider. Go to the ER for worsening symptoms. Patient in agreement with plan of care. Level of Care: Express Care Visit Vital Signs Vital signs: Vital Signs Temperature 37.1 C 09/02/24 18:42 Pulse Rate 09/02/24 18:42 Respiratory Rate 09/02/24 18:42 Blood Pressure 121/66 09/02/24 18:42 Pulse Oximetry 99 09/02/24 18:42 Oxygen Delivery Room Air 09/02/24 18:42 Temperature 37.1 C 09/02/24 18:42 Pulse Rate 09/02/24 18:42 Respiratory Rate 16 09/02/24 18:42 Blood Pressure 121/66 09/02/24 18:42 Pulse Oximetry 99 09/02/24 18:42 Oxygen Delivery Room Air 09/02/24 18:42 Medical Decision Making Vital Signs Vital Signs: Vital Signs Temperature 37.1 C 09/02/24 18:42 Pulse Rate 09/02/24 18:42 Respiratory Rate 16 09/02/24 18:42 Blood Pressure 121/66 09/02/24 18:42 Pulse Oximetry 99 09/02/24 18:42 Oxygen Delivery Room Air 09/02/24 18:42 Temperature 37.1 C 09/02/24 18:42 Pulse Rate 85 09/02/24 18:42 Respiratory Rate 16 09/02/24 18:42 Blood Pressure 121/66 09/02/24 18:42 Pulse Oximetry 99 09/02/24 18:42 Oxygen Delivery Room Air 09/02/24 18:42 Lab Data Labs: Lab Results 09/02/24 Range/Units 18:59 POC Grp A Strep Screen Negative (Negative) Discharge Plan Discharge Clinical Impression: Pharyngitis Patient Disposition: Home Condition: Stable Instructions: Antibiotic Form, Pharyngitis (ED) Patient Language: French Prescriptions: New amoxicillin-pot clavulanate 875-125 mg tablet 1 tablet PO Q12H Qty: 20 0RF Follow-up/Referrals: Harms,Griffin Wakefield M.D. [Primary Care Provider] - Stand Alone Forms: Work/School Release IP Time of Disposition: 18:59
== END 2024-09-02 19:07 | disposition home or self-care (01) ==
PROVIDERS: Emergency Provider Nurse Practitioner; PCP Family Medicine
DX: J02.9 Acute pharyngitis, unspecified (principal); J45.909 Unspecified asthma, uncomplicated; Z87.891 Personal history of nicotine dependence
CPT/HCPCS: 87081; 87880; 99213; G0463

== ENCOUNTER 2025-03-26 16:20 | Emergency (ER) | payer OTHER, SELFPAY ==
--- OUTSIDE RECORDS SUMMARY | 2025-03-26 16:22 | XMS_ITS | Clinical Summary ---
Author Organization [facility] Address [address] [place] [address] Phone Care Team Providers Care Managing Consultant Clinical Professor Name Role Phone Provider, None Primary Care [...] 98 kg (216 lb) 04/20/2023 9:28 PM NATIONAL SECRETARY Height 177.8 cm (5' 10) 04/20/2023 9:28 PM NATIONAL SECRETARY Body Mass Index 30.99 04/20/2023 9:28 PM NATIONAL SECRETARY Plan of Treatment Health Maintenance Due Date Last Done Comments Hepatitis C Virus (HCV) Screening 2003 Meningococcal B Immunization (2 of 2 - Bexsero SCDM 2-dose series) 07/10/2021 01/09/2021 Influenza Immunization (#1) 2024 01/09/2021, 1 SARS-COV-2 Immunization ( - season) 2024 10/24/2020, 09/28/2020 Td Immunization Every 10 Years [...] patient's age to complete this topic Insurance [facility] [place] [address] Care Teams Managing Consultant Clinical Professor Relationship Specialty Start Date End Date Provider, None [place] PCP - General 01/03/24
--- OUTSIDE RECORDS SUMMARY | 2025-03-26 16:26 | XMS_ITS | Clinical Summary ---
Author Organization [facility] [address] [facility] lto Address [address] [place] [address] Care Team Providers Care Site Lead Name Role Phone Griffin Colorado MD Primary Care Provider +1 [phone] Allergies No known active allergies Medications albuterol [...] Active Additional Information Patient not taking.Reported on 09/14/2024 Active Problems Problem Noted Date Diagnosed Date Acute right eye pain 05/25/2024 Right corneal abrasion 05/25/2024 Assessment & Plan (05/25/2024 1:22 PM TRADE SHOW MANAGER): Erythromycin ointment given. Discussed red flags and when to go to ER. Will continue to monitor. 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 Encounter for medical examination to establish c are 04/21/2024 Assessment & Plan (04/21/2024 9:09 AM TRADE SHOW MANAGER): Focus of exam is to establish care. Reivewed past medical history. Congratulate on cigarette cessation. Remains active. Reivewed usn/skin cancer screening. Montior for change in stools / abdominal pain with family hx of UC. BMI 34.0-34.9,adult 04/21/2024 Assessment & Plan (04/21/2024 9:09 AM TRADE SHOW MANAGER): Healthy food chcoies and encourage 150min/week aerobic exercise. Class 1 obesity due to exces s calories without serious comorbidity with body mass index (BMI) of 34.0 to 34.9 in adult 04/21/2024 Assessment & Plan (05/25/2024 1:21 PM TRADE SHOW MANAGER): Encouraged heart healthy diet and lifestyle. [...] on file Legal Sex Male 11:29 PM TRADE SHOW MANAGER Gender Identity Not on file Sexual Orientation Not on file Last Filed Vital Signs Vital Sign Reading Time Taken Comments Blood Pressure 128/64 09/14/2024 3:43 PM CDT Pulse 78 09/14/2024 3:43 PM CDT Temperature 36.4 C (97.6 F) 09/14/2024 3:43 PM CDT Respiratory Rate 18 09/14/2024 3:43 PM CDT Oxygen Saturation 98% 09/14/2024 3:43 PM CDT Inhaled Oxygen Concentration - - Weight 102.5 kg (226 lb) 09/14/2024 3:43 PM CDT Height 177.8 cm (5' 10) 09/14/2024 3:43 PM CDT Body Mass Index 32.43 09/14/2024 3:43 PM CDT Plan of Treatment Health Maintenance Due Date Last Done Comments Hepatitis C Screening 2003 Pneumococcal vaccine <65 (1 of 1 - PPSV23, PCV20, or PCV21) 11/02/2009 2004, 05/06/2004, 03/04/2004, Additional history exists Meningococcal B Vaccine (2 o f 2 - Bexsero SCDM 2-dose series) 07/10/2021 01/09/2021 Regular Well Visit/Exam 18-64 11/02/2021 Covid-19 Vaccine (3 - 2024-2 6 season) 2024 10/24/2020, 09/28/2020 Influenza Vaccine (#1) 2024 01/09/2021, 2011 Depression Screening 05/25/2025 05/25/2024, 04/21/19 25 DTaP/Tdap/Td Vaccine (8 - Td or Tdap) 07/16/2032 07/16/2022, 09/03/2014, 11/08/2008, Additional history exists Hepatitis B Screening Completed 05/06/2004 , 03/04/2004, 01/03/2004, Additional history exists Varicella Vaccines Completed 11/08/2008, 2004 HPV Vaccines Completed 08/26/2017, 03/03/2016 Meningococcal Vaccine Completed 01/09/2021, 015 Insurance [facility] CHOICE PLUS [facility] HMO/PPO Address: [place] [address] Care Teams Site Lead Relationship Specialty Start Date End Date Griffin [place] [address] PCP - General Family Medicine 04/21/24
[2025-03-26 16:28] VITALS: BP 144/63; PULSE 80; RESP 20; TEMP 37.1; O2SAT 99
--- NOTE | 2025-03-26 16:38 | ED.SKABFB ---
HPI - Skin/Abscess/Foreign Bdy General Chief complaint: Skin/Abscess/Foreign Body Stated complaint: Finger Irritation/Infection Time Seen by Provider: 03/26/25 16:41 Source: patient, family, RN notes reviewed and old records reviewed Mode of arrival: ambulatory Limitations: no limitations History of Present Illness HPI narrative: 19 year old male presents to [facility] care with complaints of redness and swelling to the nail bed of his right index finger which he noted yesterday. Patient works as metal welder in [employer] and denies any known injury to his right index finger. Patient reports that his tetanus is up to date. Patient has not taken any OTC medications for his discomfort and has not soaked or applied any OTC medication to inflammed tissue right index finger. MD complaint: other (paronychia) Onset (ago): day(s) (day 2) Tetanus up to date: yes Location: R hand (right index) Severity scale (1-10): 3 Quality: aching and other (red and swollen) Treatments prior to arrival: none Related Data Home Medications ?Medication ?Instructions ?Recorded ?Confirmed ?Last Taken ?Type albuterol 90 mcg-budesonide 80 inh inhalation 03/26/25 Unknown History mcg/actuation HFA aerosol inhaler (Airsupra) Allergies Allergy/AdvReac Type Severity Reaction Status Date / Time No Known Allergies Allergy Verified 03/26/25 16:32 Review of Systems Review of Systems: CONSTITUTIONAL: Denies fever, chills, or sweats. CARDIOVASCULAR: Denies chest pain, palpitations, or edema. RESPIRATORY: Denies cough or dyspnea. GASTROINTESTINAL: Denies abdominal pain, nausea, vomiting SKIN: Reports redness and swelling to the lateral nail bed of his right index finger Denies purulent drainage, vesicles, bullae, numbness, pain beyond proportion, denies any know injury to right index finger. MUSCULOSKELETAL: Denies myalgia. NEUROLOGIC: Denies headache, numbness All systems reviewed & are unremarkable except as noted in HPI and below [facility] Past Medical History Medical History (Updated 03/28/25 @ 07:43 by Tammy Clifford APRN) Burn of left hand Asthma Surgical History Surgical History History of tonsillectomy Family History Family History Mother Family history non-contributory Social History Social History (Reviewed 09/02/24 @ 19:09 by Rohan Panda, OIL EXPLORATION ENGINEER, PREASSEMBLER AND INSPECTOR) Smoking status: Former smoker Alcohol intake: current Alcohol use details: rare Gender identity (if verbalized by the patient): Male Spiritual care concerns: No Comments At time of signature, agree with nursing past medical, surgical, social and family history. There is no relevant family history pertinent to the presenting complaint Exam Narrative: GENERAL: Well-appearing, well-nourished, and in no acute distress. HEAD: Normocephalic, atraumatic. EYES: PERRLA and EOMI. ENT: Nares clear, no rhinorrhea or epistaxis. Mucous membranes moist.TM's normal throat pink with no tonsils present. NECK: Supple.no lymphadenopathy CHEST: Clear to auscultation. No respiratory distress. SAO2 99% on room air HEART: Regular rate and rhythm. No murmur heard. Normal peripheral pulses. ABDOMEN: Soft, nontender, nondistended, normal active bowel sounds. EXTREMITIES: Normal range of motion. No edema. SKIN: Warm, dry. Erythema, induration, tenderness to the lateral aspect of his right index finger nail bed with no fluctuation of tissue noted ,no warmth or any drainage. No vesicles, bullae, necrosis, ecchymosis, noted to lateral side of 2nd finger. NEURO: No focal deficits. Alert and oriented x3. Course Course Level of Care: Express Care Visit Vital Signs Vital signs: Vital Signs Temperature 37.1 C 03/26/25 16:28 Pulse Rate 80 03/26/25 16:28 Respiratory Rate 20 03/26/25 16:28 Blood Pressure 144/63 H 03/26/25 16:28 Pulse Oximetry 99 03/26/25 16:28 Oxygen Delivery Room Air 03/26/25 16:28 Temperature 37.1 C 03/26/25 16:28 Pulse Rate 80 03/26/25 16:28 Respiratory Rate 20 03/26/25 16:28 Blood Pressure 144/63 H 03/26/25 16:28 Pulse Oximetry 99 03/26/25 16:28 Oxygen Delivery Room Air 03/26/25 16:28 reviewed MDM MDM Narrative Medical decision making narrative: 19 year old male with paronychia to the lateral aspect of his right index finger nail bed no fluctuation of tissue noted pain reported /.Instructions on soaking of right index finger and application of mupiricin ointment and RX antibiotics of cephalexin and bactrim sent to patient's pharmacy of [facility].Anticipatory guidance and reasons to seek care in the ED reviewed with patient with understanding voiced. Differential Diagnosis Differential Diagnosis: Differential diagnostic considerations for skin/abscess/foreign body issues include abscess of skin or subcutaneous tissue, viral exanthem, dermatophytosis, urticaria, herpes zoster, allergic reaction to drug, cellulitis, eczema, insect bites, impetigo, contact dermatitis, vasculitis. paronychia Critical Care Time Critical Care Time Critical Care Time: No Discharge Plan Discharge Clinical Impression: Paronychia of finger of right hand Patient Disposition: Home Condition: Stable Instructions: Antibiotic Form, Paronychia (ED) Additional Instructions: soak right index finger in liquid dial soap 2 times daily apply Mupiricin ointment and dressing of choice watch for increasing infection--redness, swelling, drainage Tylenol or ibuprofen for any fever or pain follow up with PCP in 7-10 days for a wound check recheck if develop fever, chills, increasing symptom Go to the ER if your symptoms become worse of if ANY new symptoms develop oral antibiotic as prescribed till completed. Cephalexin 500 mg one tab BID for 7 days and Bactrim DS one tab BID for 7 days If your symptoms persist, change or worsen significantly before you can contact your personal physician then please, without delay, go to the emergency department for further evaluation. Follow-up with PCP in 7-10 days or sooner if needed Follow up with PCP soon in regards to your blood pressure which is elevated above threshold for referral. Blood pressure above 120/80 may indicate pre-hypertension.144/63 Patient Language: Yakut Prescriptions: New cephalexin 500 mg tablet 500 mg PO Q12H Qty: 14 0RF sulfamethoxazole-trimethoprim [Bactrim DS] 800-160 mg tablet 1 tablet PO Q12H Qty: 14 0RF No Action Airsupra 90-80 mcg/actuation HFA aerosol inhaler INHALATION Follow-up/Referrals: Harms,Griffin Wakefield M.D. [Primary Care Provider] Time of Disposition: 17:03 Quality [facility] Coma Scale Eyes: Open Verbal: Oriented and Alert Motor: Follows Commands Yusuf Coma Total Score: 15
== END 2025-03-26 17:09 | disposition home or self-care (01) ==
PROVIDERS: Emergency Provider Registered Nurse; PCP Family Medicine
DX: L03.011 Cellulitis of right finger (principal); Z87.891 Personal history of nicotine dependence
CPT/HCPCS: 99213; G0463